=== PATIENT | female | born 1950 | race Caucasian/White ===

== ENCOUNTER → 2017-12-29 | Outpatient (CLI) | payer MEDICARE ==
[~2017-12-29] MED LIST: DICL100G19 TD; LISI-167 PO; OXYC1TAB9 PO; ZOLP10TA PO
[2017-12-29 11:17] LABS: MICROSCOPIC NOT IND
[2017-12-29 11:21] LABS: CULTURE INDICATED? NO
[2017-12-29 11:27] LABS: BASOPHILS # (AUTO) 0.04 x10^3/uL (0-0.1); BASOPHILS % (AUTO) 1 % (0-1); EOSINOPHILS # (AUTO) 0.15 x10^3/uL (0-0.4); EOSINOPHILS % (AUTO) 3 % (1-7); INTERNATIONAL NORMALIZED RATIO 1.01 (0.93-1.1); LYMPHOCYTES # (AUTO) 2.22 x10^3/uL (1-3.4); LYMPHOCYTES % (AUTO) 38 % (22-44); MD NO; MEAN CORPUSCULAR HEMOGLOBIN 30.5 pg (27.0-34.8); MEAN CORPUSCULAR HGB CONC 33.1 g/dL (32.4-35.8); MEAN CORPUSCULAR VOLUME 92.3 fL (80-100); MONOCYTES # (AUTO) 0.53 x10^3/uL (0.2-0.8); MONOCYTES % (AUTO) 9 % (2-9); NEUTROPHILS # (AUTO) 2.91 x10^3/uL (1.8-6.8); NEUTROPHILS % (AUTO) 50 % (42-75); PLATELET COUNT 183 x10^3/uL (130-400); PROTHROMBIN TIME 10.4 Seconds (9.6-11.5); RED BLOOD COUNT 4.62 x10^6/uL (3.82-5.3); RED CELL DISTRIBUTION WIDTH 13.7 % (9.6-15.2)
[2017-12-29 11:34] LABS: ALANINE AMINOTRANSFERASE 33 U/L (12-78); ANION GAP 9 mmol/L (5-15); CALCIUM 8.6 mg/dL (8.5-10.1); CHLORIDE 109 mmol/L (98-107)
[2017-12-29 11:37] LABS: ALKALINE PHOSPHATASE 65 U/L (45-117); BILIRUBIN,TOTAL 0.8 mg/dL (0.2-1.0); CREATININE 0.83 mg/dL (0.55-1.02); TOTAL PROTEIN 7.3 g/dL (6.4-8.2)
== END ==
LOC: STAR 09:54
PROVIDERS: ATTEND Orthopaedic Surgery Adult Reconstructive Orthopaedic Surgery
DX: Z01.818 Encounter for other preprocedural examination (principal); M16.11 Unilateral primary osteoarthritis, right hip
CPT/HCPCS: 36415; 80053; 81003; 85025; 85610; 85730; 87081; 87147; 93005

== ENCOUNTER 2018-01-15 07:46 | Inpatient (IN) | payer MEDICARE ==
[~2018-01-15] VITALS: Ht 168.9 cm; Wt 94.0 kg
[2018-01-15] MEDS ORDERED: VANCOMYCIN PER PHARMACY MC ONE (08:23)
[2018-01-15] MEDS ORDERED: KETOROLAC 60 MG/2 ML ONE (08:29)
[2018-01-15] MEDS: D5%-0.45% NACL 1,000 ML IV SCH ×2 (08:29→16:57)
[2018-01-15] MEDS ORDERED: TRANEXAMIC ACID 100 MG/ML, 10ML ONE ×2 (08:29→13:17)
[2018-01-15] MEDS ORDERED: ZOLPIDEM 5MG TABLET PO PRN (08:30)
[2018-01-15] MEDS ORDERED: DIPHENHYDRAMINE 25 MG CAPSULE PO PRN (08:30)
[2018-01-15] MEDS ORDERED: PROMETHAZINE 12.5 MG SUPP PR PRN (08:30)
[2018-01-15] MEDS ORDERED: EPINEPHRINE 1 MG/ML, 1ML ONE (08:30)
[2018-01-15] MEDS ORDERED: SENNA/DOCUSATE TABLET PO PRN (08:30)
[2018-01-15] MEDS ORDERED: VANCOMYCIN 1,000 MG ONE (08:30)
[2018-01-15] MEDS ORDERED: ALUMINUM/MAG/SIMETHICONE 30 ML UDC PO PRN (08:30)
[2018-01-15] MEDS ORDERED: PLEASE ENTER WEIGHT MC SCH (08:30)
[2018-01-15] MEDS ORDERED: DIAZEPAM 5 MG TABLET PO PRN (08:30)
[2018-01-15] MEDS ORDERED: ONDANSETRON 4 MG TABLET PO PRN (08:30)
[2018-01-15] MEDS ORDERED: PROMETHAZINE 25 MG/ML, 1ML IM PRN ×2 (08:30→12:30)
[2018-01-15] MEDS ORDERED: BISACODYL 10 MG SUPP PR PRN (08:30)
[2018-01-15] MEDS ORDERED: ROPIvacaine/PF 0.2%, 20 ML ONE (08:30)
[2018-01-15] MEDS ORDERED: LORazepam 1MG TABLET PO PRN (08:30)
[2018-01-15] MEDS ORDERED: MAGNESIUM HYDROXIDE 8%, 30ML UDC PO PRN (08:30)
[2018-01-15] MEDS ORDERED: ONDANSETRON 2MG/ML, 2ML IV PRN (08:30)
[2018-01-15] MEDS: ACETAMINOPHEN 650 MG/20.3 ML UDC PO SCH ×2 (08:30→17:30)
[2018-01-15] MEDS ORDERED: ACETAMINOPHEN 500 MG TABLET PO ONE (09:00)
[2018-01-15] MEDS: DOCUSATE 100 MG CAPSULE PO SCH ×2 (09:00→21:06)
[2018-01-15] MEDS ORDERED: VANCOMYCIN 1,800 MG in SODIUM CHLORIDE 0.9% 250 ML IV SCH (09:00)
[2018-01-15] MEDS ORDERED: OxyconTIN ER 10 MG TAB.ER PO ONE (09:00)
[2018-01-15] MEDS ORDERED: FAMOTIDINE 20 MG TABLET PO ONE (09:00)
[2018-01-15] MEDS: LACTATED RINGERS 1,000 ML IV SCH ×2 (09:21→11:53)
[2018-01-15] MEDS ORDERED: FENTANYL PF 250 MCG/5ML ONE ×2 (09:26→13:20)
[2018-01-15] MEDS ORDERED: MIDAZOLAM 1 MG/ML, 2ML ONE (09:26)
[2018-01-15] MEDS ORDERED: PROPOFOL 10 MG/ML, 20ML ONE (09:28)
[2018-01-15] MEDS ORDERED: CEFAZOLIN 1,000 MG ONE (09:28)
[2018-01-15] MEDS ORDERED: SUCCINYLCHOLINE 20 MG/ML, 10ML ONE (09:28)
[2018-01-15] MEDS ORDERED: DEXAMETHASONE 4 MG/ML, 1ML ONE (09:28)
[2018-01-15] MEDS ORDERED: NEOSTIGMINE 1 MG/ML, 10ML ONE (09:28)
[2018-01-15] MEDS ORDERED: GLYCOPYRROLATE 0.2MG/1ML, 5ML ONE (09:28)
[2018-01-15] MEDS ORDERED: ROCURONIUM 10MG/ML,5ML ONE (09:29)
[2018-01-15] MEDS ORDERED: ONDANSETRON ODT 8 MG PO PRN (12:30)
[2018-01-15] MEDS ORDERED: OXYcodone 5 MG/5 ML ORAL.SOL UDC PO PRN (12:30)
[2018-01-15] MEDS ORDERED: MORPHINE SULFATE 4 MG/ML, 1ML IVPush PRN (12:30)
[2018-01-15] MEDS ORDERED: LABETALOL 5MG/ML, 20ML IV PRN (12:30)
[2018-01-15] MEDS ORDERED: hydrALAzine 20 MG/ML, 1ML IV PRN (12:30)
[2018-01-15] MEDS ORDERED: FENTANYL PF 100 MCG/2ML IV PRN (12:30)
[2018-01-15] MEDS ORDERED: PROMETHAZINE 25 MG/ML, 1ML IV PRN (12:30)
[2018-01-15] MEDS ORDERED: PHENYLEPHRINE 10 MG/ML ONE (12:44)
[2018-01-15] MEDS ORDERED: LIDOCAINE 4%, 4 ML SYR/CANN TP ONE (12:44)
[2018-01-15] MEDS: HYDROmorphone 1 MG/ML, 1ML IV PRN ×3 (14:40→14:55)
[2018-01-15] MEDS ORDERED: FENTANYL PF 100 MCG/2ML ONE (14:42)
[2018-01-15] MEDS ORDERED: HYDROmorphone 2 MG/ML, 1ML ONE (14:42)
[2018-01-15] MEDS ORDERED: LORazepam 2 MG/ML, 1ML ONE (14:43)
[2018-01-15] MEDS ORDERED: LORazepam 2 MG/ML, 1ML IVPush PRN (15:00)
[2018-01-15] MEDS ORDERED: PNEUMOCOCCAL 23 VACCINE IM-VACC ONE (16:30)
[2018-01-15] MEDS: ASPIRIN 81 MG TABLET EC PO SCH (18:11)
[2018-01-15] MEDS: OXYcodone IR 5MG TABLET PO PRN ×2 (18:23→21:06)
[2018-01-15 20:32] VITALS: BP 114/76
[2018-01-15] MEDS: CEFAZOLIN PMX 2GM/50ML 50 ML IVPB SCH (21:07)
[2018-01-16 00:11] VITALS: BP 149/87
[2018-01-16] MEDS: D5%-0.45% NACL 1,000 ML IV SCH ×2 (01:53→11:00)
[2018-01-16] MEDS: ACETAMINOPHEN 650 MG/20.3 ML UDC PO SCH ×2 (02:19→08:32)
[2018-01-16] MEDS: OXYcodone IR 5MG TABLET PO PRN ×2 (02:28→05:09)
[2018-01-16 04:06] VITALS: BP 118/70
[2018-01-16] MEDS: CEFAZOLIN PMX 2GM/50ML 50 ML IVPB SCH (05:00)
[2018-01-16] MEDS: ASPIRIN 81 MG TABLET EC PO SCH (05:00)
[2018-01-16 05:14] LABS: ANION GAP 8 mmol/L (5-15); CALCIUM 8.2 mg/dL (8.5-10.1); CHLORIDE 111 mmol/L (98-107); CREATININE 0.69 mg/dL (0.55-1.02)
[2018-01-16 07:06] VITALS: BP 130/80
[2018-01-16] MEDS ORDERED: KETOROLAC 30 MG/1 ML IV SCH (08:30)
[2018-01-16] MEDS: DOCUSATE 100 MG CAPSULE PO SCH (08:32)
[2018-01-16] MEDS ORDERED: LISINOPRIL 10 MG TABLET PO SCH (09:00)
[2018-01-16] MEDS ORDERED: DOCU-131 PO (09:29)
[2018-01-16] MEDS ORDERED: OXYC5CAP2 PO (09:29)
[2018-01-16] MEDS ORDERED: ASPI-621 PO (09:29)
[2018-01-16] MEDS ORDERED: ACET-76 PO (09:30)
[2018-01-16 13:18] VITALS: BP 106/69
== END 2018-01-16 14:33 | disposition home or self-care (01) | DRG 470 ==
LOC: ORIP 07:46 → 4NOR 16:05 → DCLOUNGE 01-16 14:20
PROVIDERS: ADMIT Orthopaedic Surgery Adult Reconstructive Orthopaedic Surgery; ATTEND Orthopaedic Surgery Adult Reconstructive Orthopaedic Surgery
PROC: 0SR90JA Replacement of Right Hip Joint with Synthetic Substitute, Uncemented, Open Approach (ICD-10-PCS; principal; 2018-01-15 10:30)
DX: M16.11 Unilateral primary osteoarthritis, right hip (principal); M16.12 Unilateral primary osteoarthritis, left hip
CPT/HCPCS: 36415; 72170; 80048; 82040; 85018; 86850; 86900; C1713; J0171; J0690; J1100; J1170; J1885; J2250; J2704; J2710; J2795; J3010; J3370; J3490; C1776; J0330; J2060; J2370; J7050; J7120

== ENCOUNTER → 2018-04-09 | Outpatient (CLI) | payer MEDICARE ==
[~2018-04-09] MED LIST changes: +ACET-76 PO; +ASPI-621 PO; +DICL100G19 TP; +DOCU-131 PO; +OXYC-432 PO; +OXYC1TAB8 PO; -OXYC1TAB9 PO; +OXYC5CAP2 PO
[2018-04-09 10:29] LABS: BASOPHILS # (AUTO) 0.03 x10^3/uL (0-0.1); BASOPHILS % (AUTO) 1 % (0-1); EOSINOPHILS # (AUTO) 0.14 x10^3/uL (0-0.4); EOSINOPHILS % (AUTO) 3 % (1-7); LYMPHOCYTES # (AUTO) 2.62 x10^3/uL (1-3.4); LYMPHOCYTES % (AUTO) 50 % (22-44); MD NO; MEAN CORPUSCULAR HEMOGLOBIN 29.1 pg (27.0-34.8); MEAN CORPUSCULAR HGB CONC 32.5 g/dL (32.4-35.8); MEAN CORPUSCULAR VOLUME 89.4 fL (80-100); MEAN PLATELET VOLUME 9.7 fL (7.4-10.4); MONOCYTES # (AUTO) 0.52 x10^3/uL (0.2-0.8); MONOCYTES % (AUTO) 10 % (2-9); NEUTROPHILS # (AUTO) 1.97 x10^3/uL (1.8-6.8); NEUTROPHILS % (AUTO) 37 % (42-75); PLATELET COUNT 226 x10^3/uL (130-400); RED BLOOD COUNT 4.62 x10^6/uL (3.82-5.3); RED CELL DISTRIBUTION WIDTH 14.8 % (9.6-15.2)
[2018-04-09 10:38] LABS: CULTURE INDICATED? YES; MICROSCOPIC INDICATED
[2018-04-09 10:41] LABS: ALANINE AMINOTRANSFERASE 36 U/L (12-78); ALBUMIN 4.2 g/dL (3.4-5.0); ANION GAP 10 mmol/L (5-15); CALCIUM 8.8 mg/dL (8.5-10.1); CHLORIDE 109 mmol/L (98-107); CREATININE 0.75 mg/dL (0.55-1.02); INTERNATIONAL NORMALIZED RATIO 1.02 (0.93-1.1); PROTHROMBIN TIME 10.5 Seconds (9.6-11.5)
[2018-04-09 10:44] LABS: ALKALINE PHOSPHATASE 82 U/L (45-117); BILIRUBIN,TOTAL 0.5 mg/dL (0.2-1.0); TOTAL PROTEIN 7.6 g/dL (6.4-8.2)
== END | disposition home or self-care (01) ==
LOC: STAR 09:22
PROVIDERS: ATTEND Orthopaedic Surgery Adult Reconstructive Orthopaedic Surgery
DX: Z01.818 Encounter for other preprocedural examination (principal); M16.12 Unilateral primary osteoarthritis, left hip
CPT/HCPCS: 36415; 80053; 81001; 85025; 85610; 85730; 87081; 87086; 87147; 93005

== ENCOUNTER 2018-04-24 07:30 | Inpatient (IN) | payer MEDICARE ==
[~2018-04-24] VITALS: Ht 168.9 cm; Wt 94.0 kg
[2018-04-25] MEDS ORDERED: LACTATED RINGERS 1,000 ML IV SCH (06:01)
[2018-04-25 06:03] VITALS: BP 131/86
[2018-04-25] MEDS ORDERED: TRANEXAMIC ACID 100 MG/ML, 10ML ONE (06:22)
[2018-04-25] MEDS ORDERED: VANCOMYCIN 1,000 MG ONE (06:22)
[2018-04-25] MEDS ORDERED: FENTANYL PF 250 MCG/5ML ONE (06:41)
[2018-04-25] MEDS ORDERED: MIDAZOLAM 1 MG/ML, 2ML ONE ×2 (06:41→09:26)
[2018-04-25] MEDS ORDERED: SUCCINYLCHOLINE 20 MG/ML, 10ML ONE (07:01)
[2018-04-25] MEDS ORDERED: PROPOFOL 10 MG/ML, 20ML ONE ×3 (07:13→07:19)
[2018-04-25] MEDS ORDERED: PHENYLEPHRINE 10 MG/ML ONE (07:44)
[2018-04-25] MEDS ORDERED: EPHEDRINE 50 MG/ML, 1ML ONE (07:44)
[2018-04-25] MEDS ORDERED: ONDANSETRON 2MG/ML, 2ML ONE (07:44)
[2018-04-25] MEDS ORDERED: METOCLOPRAMIDE 5 MG/ML, 2ML ONE (07:44)
[2018-04-25] MEDS ORDERED: ROCURONIUM 10MG/ML,5ML ONE (07:44)
[2018-04-25] MEDS ORDERED: DEXAMETHASONE 4 MG/ML, 1ML ONE (07:44)
[2018-04-25] MEDS ORDERED: CEFAZOLIN 1,000 MG ONE ×2 (07:45)
[2018-04-25] MEDS ORDERED: LIDOCAINE GEL 2%, 5ML ONE (07:45)
[2018-04-25] MEDS ORDERED: SODIUM CHLORIDE 0.9% PF 10ML ONE (07:45)
[2018-04-25] MEDS ORDERED: MEPERIDINE/PF 50 MG/ML ONE (07:58)
[2018-04-25] MEDS ORDERED: ONDANSETRON 2MG/ML, 2ML IVPush PRN (08:30)
[2018-04-25] MEDS ORDERED: OXYcodone 5 MG/5 ML ORAL.SOL UDC PO PRN (08:30)
[2018-04-25] MEDS ORDERED: MEPERIDINE/PF 25MG/0.5ML IVPush PRN (08:30)
[2018-04-25] MEDS ORDERED: HYDROmorphone 2 MG/ML, 1ML IV PRN (08:30)
[2018-04-25] MEDS ORDERED: LABETALOL 5MG/ML, 20ML IV PRN (08:30)
[2018-04-25] MEDS ORDERED: MIDAZOLAM 1 MG/ML, 2ML IV PRN (08:30)
[2018-04-25] MEDS: D5%-0.45% NACL 1,000 ML IV SCH ×2 (09:15→19:15)
[2018-04-25] MEDS ORDERED: OXYcodone 5 MG/5 ML ORAL.SOL UDC ONE (09:26)
[2018-04-25] MEDS ORDERED: FENTANYL PF 100 MCG/2ML ONE (09:26)
[2018-04-25] MEDS ORDERED: PROMETHAZINE 25 MG/ML, 1ML IM PRN (09:30)
[2018-04-25] MEDS: FENTANYL PF 100 MCG/2ML IV PRN ×3 (09:30→09:50)
[2018-04-25] MEDS ORDERED: HYDROcodone/APAP 5/325 TABLET PO PRN (09:30)
[2018-04-25] MEDS ORDERED: BISACODYL 10 MG SUPP PR PRN (09:30)
[2018-04-25] MEDS ORDERED: ZOLPIDEM 5MG TABLET PO PRN (09:30)
[2018-04-25] MEDS ORDERED: ONDANSETRON 2MG/ML, 2ML IV PRN (09:30)
[2018-04-25] MEDS ORDERED: DIPHENHYDRAMINE 25 MG CAPSULE PO PRN (09:30)
[2018-04-25] MEDS ORDERED: ONDANSETRON 4 MG TABLET PO PRN (09:30)
[2018-04-25] MEDS ORDERED: MAGNESIUM HYDROXIDE 8%, 30ML UDC PO PRN (09:30)
[2018-04-25] MEDS ORDERED: PROMETHAZINE 12.5 MG SUPP PR PRN (09:30)
[2018-04-25] MEDS ORDERED: SENNA/DOCUSATE TABLET PO PRN (09:30)
[2018-04-25] MEDS ORDERED: HYDROmorphone 1 MG/ML, 1ML IV PRN (09:30)
[2018-04-25] MEDS ORDERED: ALUMINUM/MAG/SIMETHICONE 30 ML UDC PO PRN (09:30)
[2018-04-25] MEDS ORDERED: KETOROLAC 30 MG/1 ML ONE (09:43)
[2018-04-25] MEDS ORDERED: TRANEXAMIC ACID 1,000 MG in SODIUM CHLORIDE 0.9% 100 ML IVPB ONE (10:00)
[2018-04-25] MEDS ORDERED: HYDROmorphone 2 MG/ML, 1ML ONE (10:20)
[2018-04-25] MEDS ORDERED: EPHEDRINE 50 MG/ML, 1ML IVPush PRN (12:00)
[2018-04-25 14:00] VITALS: BP 91/58
[2018-04-25] MEDS ORDERED: CEFAZOLIN PMX 2GM/50ML 50 ML IVPB SCH (15:00)
[2018-04-25] MEDS: CEFAZOLIN 2,000 MG in SODIUM CHLORIDE 0.9% 50 ML IVPB SCH ×2 (15:46→23:39)
[2018-04-25] MEDS ORDERED: CEFAZOLIN 2,000 MG in SODIUM CHLORIDE 0.9% 50 ML IVPB SCH (16:00)
[2018-04-25] MEDS: OXYcodone IR 5MG TABLET PO PRN ×2 (17:56→23:20)
[2018-04-25] MEDS: ASPIRIN 81 MG TABLET EC PO SCH (17:56)
[2018-04-25 19:54] VITALS: BP 115/67
[2018-04-25] MEDS: LISINOPRIL 10 MG TABLET PO SCH (21:00)
[2018-04-25 23:48] VITALS: BP 126/66
[2018-04-26] MEDS: ACETAMINOPHEN 650 MG/20.3 ML UDC PO PRN ×5 (00:39→21:04)
[2018-04-26 02:27] VITALS: BP 93/50
[2018-04-26] MEDS: D5%-0.45% NACL 1,000 ML IV SCH ×2 (02:32→14:35)
[2018-04-26 04:30] VITALS: BP 98/58
[2018-04-26] MEDS: OXYcodone IR 5MG TABLET PO PRN ×4 (04:31→21:05)
[2018-04-26] MEDS: ASPIRIN 81 MG TABLET EC PO SCH ×2 (05:41→17:32)
[2018-04-26] MEDS ORDERED: ASPI-621 PO (07:59)
[2018-04-26] MEDS ORDERED: OXYC5TAB3 PO (07:59)
[2018-04-26] MEDS ORDERED: KETOROLAC 30 MG/1 ML IV SCH (09:30)
[2018-04-26] MEDS: KETOROLAC 30 MG/1 ML IV SCH ×2 (09:34→17:32)
[2018-04-26 13:37] VITALS: BP 90/50
[2018-04-26 18:49] VITALS: BP 98/64
[2018-04-26] MEDS: LISINOPRIL 10 MG TABLET PO SCH (21:00)
[2018-04-27] MEDS: D5%-0.45% NACL 1,000 ML IV SCH ×2 (01:15→10:22)
[2018-04-27 01:21] VITALS: BP 103/60
[2018-04-27] MEDS: OXYcodone IR 5MG TABLET PO PRN ×3 (03:35→12:25)
[2018-04-27] MEDS: ACETAMINOPHEN 650 MG/20.3 ML UDC PO PRN ×3 (03:35→12:25)
[2018-04-27] MEDS: ASPIRIN 81 MG TABLET EC PO SCH (06:16)
[2018-04-27 07:24] VITALS: BP 103/66
== END 2018-04-27 14:15 | disposition home or self-care (01) | DRG 470 ==
LOC: ORIP 04-25 05:30 → 4NOR 04-25 12:18 → DCLOUNGE 04-27 13:59
PROVIDERS: ADMIT Orthopaedic Surgery Adult Reconstructive Orthopaedic Surgery; ATTEND Orthopaedic Surgery Adult Reconstructive Orthopaedic Surgery
PROC: 0SRB0JA Replacement of Left Hip Joint with Synthetic Substitute, Uncemented, Open Approach (ICD-10-PCS; principal; 2018-04-25 07:00)
DX: M16.12 Unilateral primary osteoarthritis, left hip (principal); D50.0 Iron deficiency anemia secondary to blood loss (chronic); Z96.652 Presence of left artificial knee joint
CPT/HCPCS: 36415; 72170; 85014; 85018; 86850; 86900; C1713; J0690; J1100; J1170; J1885; J2175; J2250; J2405; J2704; J3010; J3370; C1776; J0330; J2370; J2765; J7120